=== PATIENT | female | born 1965 | race African-American/Black ===

== ENCOUNTER 2017-06-08 08:22 | Inpatient (IN) | payer OTHER ==
[2017-06-08 13:10] VITALS: BMI 32.2
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
[2017-06-08] MEDS ORDERED: diphenhydrAMINE HCL 50 MG CAPSULE PO PRN (15:18)
[2017-06-08] MEDS ORDERED: LOPERAMIDE HCL 2 MG CAPSULE PO PRN (15:18)
[2017-06-08] MEDS ORDERED: guaiFENesin/D-METHORPHAN HB 10 ML UNIT-DOSE CUPS PO PRN (15:18)
[2017-06-08] MEDS ORDERED: MENTHOL/PHENOL 1 EACH UD MM PRN (15:18)
[2017-06-08] MEDS ORDERED: MAG HYDROX/AL HYDROX/SIMETH 30 ML UNIT-DOSE CUP PO PRN (15:18)
[2017-06-08] MEDS ORDERED: MAGNESIUM CITRATE 300 ML BOTTLE PO PRN (15:18)
[2017-06-08] MEDS ORDERED: MAGNESIUM HYDROX 2400MG/30ML ORAL SUSPENSION 30 ML CUP PO PRN (15:18)
[2017-06-08] MEDS ORDERED: ACETAMINOPHEN 325 MG TABLET (FP) PO PRN (15:18)
[2017-06-08] MEDS ORDERED: P-EPHED 60MG/TRIPROLIDI 2.5MG TABLET PO PRN (15:18)
[2017-06-08] MEDS ORDERED: IBUPROFEN 400 MG TABLET (FP) PO PRN (15:18)
--- NOTE | 2017-06-08 17:49 | PN ---
BHS Progress Note Note: received nurse call that the patient needs detox regimen chart reviewed librium protocol continue detox
[2017-06-08 22:15] LABS: URINE APPEARANCE TURBID; URINE BILIRUBIN NEGATIVE (NEGATIVE); URINE BLOOD NEGATIVE (NEGATIVE); URINE COLOR YELLOW; URINE GLUCOSE (UA) NEGATIVE (NEGATIVE); URINE KETONE NEGATIVE (NEGATIVE); URINE NITRITE NEGATIVE (NEGATIVE); URINE PROTEIN NEGATIVE (NEGATIVE); URINE UROBILINOGEN NEGATIVE mg/dL (0.2-1.0)
[2017-06-08] MEDS: chlordiazePOXIDE HCL 25 MG CAPSULE PO SCH (22:17)
[2017-06-08 23:00] LABS: HIV 1 & 2 AB NEGATIVE; HIV 1 AGp24 NEGATIVE
[2017-06-09] MEDS: chlordiazePOXIDE HCL 25 MG CAPSULE PO SCH ×4 (05:24→22:31)
[2017-06-09 09:34] LABS: MCH 29.6 pg (25.7-33.7); MCHC 32.3 g/dl (32.0-36.0); MEAN CELL VOLUME 91.6 fl (80-96); MEAN PLT VOLUME 10.2 fl (7.5-11.1); PLATELET COUNT 319 K/MM3 (134-434); RDW 13.8 % (11.6-15.6); WHITE BLOOD COUNT 10.7 K/mm3 (4.0-10.0)
[2017-06-09 09:51] LABS: ALBUMIN 4.4 g/dl (3.4-5.0); ALK PHOS 127 U/L (45-117); ANION GAP 10 (8-16); BILIRUBIN,TOTAL 0.4 mg/dL (0.2-1.0); CALCIUM 8.5 mg/dL (8.5-10.1); CHOLESTEROL 228 mg/dL (50-200); CO2 27 mmol/L (21-32); CREATININE 0.5 mg/dL (0.55-1.02); GLUCOSE,RANDOM 83 mg/dL (74-106); SGOT/AST 25 U/L (15-37); SGPT/ALT 34 U/L (12-78); TOT PROT 7.5 g/dl (6.4-8.2)
[2017-06-09] MEDS: FLUOCINONIDE 0.05% CREAM (15 GM TUBE) TP SCH ×4 (10:07→22:31)
[2017-06-09] MEDS: PRENATAL VITAMINS W/ FOLIC ACID TABLET (FP) PO SCH (10:07)
[2017-06-09] MEDS: hydrOXYzine PAMOATE 25 MG CAPSULE (FP) PO PRN (10:07)
[2017-06-09] MEDS: NICOTINE 14 MG/24 HOURS TOPICAL PATCH TD SCH (10:07)
--- NOTE | 2017-06-09 10:19 | PN ---
S CIWA - CIWA Score Nausea/Vomitin Muscle Tremors: 3 Anxiety: 3 Agitation: 2 Paroxysmal Sweats: 1-Minimal Palms Moist Orientation: 0-Oriented Tacttile Disturbances: 1-Very Mild Itch/Numbness Auditory Disturbances: 1-Very Mild Visual Disturbances: 0-None Headache: 2-Mild CIWA-Ar Total Score: 16 BHS Progress Note (SOAP) Subjective: alert,irritable,anxious,interrupted sleep,tremor,pain i the body Objective: 06/09/17 10: Vital Signs Temperature 97.1 F L 06/09/17 06:00 Pulse Rate 60 06/09/17 06:00 Respiratory Rate 18 06/09/17 06:00 Blood Pressure 137/73 06/09/17 06:00 O2 Sat by Pulse Oximetry (%) ekg nsr no chest pain,no sob,no dizziness Laboratory Last Values WBC 10.7 K/mm3 (4.0-10.0) H 06/09/17 06:00 RBC 4.39 M/mm3 (3.60-5.2) 06/09/17 06:00 Hgb 13.0 GM/dL (10.7-15.3) 06/09/17 06:00 Hct 40.2 % (32.4-45.2) 06/09/17 06:00 MCV 91.6 fl (80-96) 06/09/17 06:00 MCH 29.6 pg (25.7-33.7) 06/09/17 06:00 MCHC 32.3 g/dl (32.0-36.0) 06/09/17 06:00 RDW 13.8 % (11.6-15.6) 06/09/17 06:00 Plt Count 319 K/MM3 (134-434) 06/09/17 06:00 MPV 10.2 fl (7.5-11.1) 06/09/17 06:00 Urine Color Yellow 06/08/17 21:30 Urine Appearance Turbid 06/08/17 21:30 Urine pH 5.0 (5.0-8.0) 06/08/17 21:30 Urine Protein Negative (NEGATIVE) 06/08/17 21:30 Urine Glucose (UA) Negative (NEGATIVE) 06/08/17 21:30 Urine Ketones Negative (NEGATIVE) 06/08/17 21:30 Urine Blood Negative (NEGATIVE) 06/08/17 21:30 Urine Nitrite Negative (NEGATIVE) 06/08/17 21:30 Urine Bilirubin Negative (NEGATIVE) 06/08/17 21:30 Urine Urobilinogen Negative mg/dL (0.2-1.0) 06/08/17 21:30 HIV 1&2 Antibody Screen Negative 06/08/17 14:00 HIV P24 Antigen Negative 06/08/17 14:00 labs pending Assessment: 06/09/17 10:18 withdrawal symptom Plan: continue detox,encourage oral fluid
[2017-06-09 11:12] LABS: URINE LEUK ESTERASE Negative (NEGATIVE)
--- NOTE | 2017-06-09 12:06 | EKG ---
Test Reason : Blood Pressure : / mmHG Vent. Rate : 061 BPM Atrial Rate : 061 BPM P-R Int : 140 ms QRS Dur : 092 ms QT Int : 454 ms P-R-T Axes : 054 005 018 degrees QTc Int : 457 ms NORMAL SINUS RHYTHM POSSIBLE LEFT ATRIAL ENLARGEMENT BORDERLINE ECG NO PREVIOUS ECGS AVAILABLE Confirmed by KATINA APONTE, CHARO ([id number]) on 06/09/2017 12:06:04 PM Referred By: Mp Pedersen Confirmed By:CHARO AMBRIZ MD
--- NOTE | 2017-06-09 17:06 | CONSULT ---
[facility] Psychiatric Consult - Data Date of interview: 06/09/17 Admission source: [facility] Identifying data: Readmission to [facility] for this 51 y/o AA female seeking detox treatment on for alcohol,marihuana and cocaine dependence.Patient is single,a mother of five,homeless,unemployed and supported on SSI benefits. Substance Abuse History: Confirmed by patient in this interview. Smoking Cessation. Smoking history: Current every day smoker. Have you smoked in the past 12 months: Yes. Aproximately how many cigarettes per day: 3. Cigars Per Day: 0. Hx Chewing Tobacco Use: No. Initiated information on smoking cessation : Yes. 'Breaking Loose' booklet given: 06/08/17. - Substance & Tx. History. Hx Alcohol Use: Yes. Hx Substance Use: Yes. Substance Use Type: Alcohol, Cocaine, Marijuana. Hx Substance Use Treatment: Yes ([facility] 05/2007). - Substances Abused. Alcohol. Route: Oral. Frequency: Daily. Amount used: 12pk beer. Age of first use: 14. Date of Last Use: 06/08/17. Crack. Route : Smoking. Frequency: 1-3 times last 30 days. Amount used: 1-2 bags. Age of first use: 17. Date of Last Use: 06/07/17. Marijuana/Hashish. Route: Smoking. Frequency: Daily. Amount used: 1-2 bags. Age of first use: 14. Date of Last Use: 06/08/17 Medical History: Hypercholesterolemia,eczema,sleep apnea and orthosurgery for fracture of left leg (2005) and a history of ovarian cystectomy. Psychiatric History: Past history of one psychiatric hospitalization at [facility] ([facility]) 2-3 years ago.Diagnosed with Bipolar Disorder.Presctibed topamax 50 mg/day.Ms Guajardo is followed at [facility] in [place].She admits to past suicide attempts via deliberate overdoses with " alcohol + pills." Physical/Sexual Abuse/Trauma History: No reported history of abuse. Additional Comment: Urine Drug Screen Results: THC-Marijuana, AMY-Cocaine.Noted. Mental Status Exam - Mental Status Exam Alert and Oriented to: Time, Place, Person Cognitive Function: Good Patient Appearance: Well Groomed (overweight) Mood: Hopeful, Euthymic Affect: Appropriate, Normal Range Patient Behavior: Talkative, Appropriate Speech Pattern: Clear Voice Loudness: Normal Thought Process: Intact, Goal Oriented Thought Disorder: Not Present Hallucinations: Denies Suicidal Ideation: Denies Homicidal Ideation: Denies Insight/Judgement: Poor Sleep: Poorly, Difficulty falling asleep (wants seroquel) Appetite: Good Muscle strength/Tone: Normal Gait/Station: Normal Psychiatric Findings - Problem List ([place] 1, 2,3) (1) Alcohol dependence with uncomplicated withdrawal Current Visit: Yes Status: Acute (2) Cannabis dependence Current Visit: Yes Status: Acute (3) Cocaine dependence Current Visit: Yes Status: Acute (4) Nicotine dependence Current Visit: Yes Status: Acute (5) Bipolar disorder Current Visit: Yes Status: Chronic Comment: Self-report.On topamax. (6) History of ovarian cyst Current Visit: Yes Status: Chronic (7) Hypercholesterolemia Current Visit: Yes Status: Chronic (8) Sleep apnea Current Visit: Yes Status: Chronic (9) Insomnia Current Visit: Yes Status: Acute - Initial Treatment Plan Initial Treatment Plan: Psychoeducation.Detoxification.Medications : topamax 50 mg po daily + seroquel 50 mg po hs.Side effects/benefits of both drugs are discussed with the patient.She agrees with this plan of care.Observation.
[2017-06-09] MEDS ORDERED: QUEtiapine FUMARATE 50 MG TABLET PO SCH (22:00)
[2017-06-10] MEDS: chlordiazePOXIDE HCL 25 MG CAPSULE PO SCH ×2 (05:17→10:24)
[2017-06-10] MEDS ORDERED: TOPIRAMATE 25 MG TABLET (FP) PO SCH (10:00)
[2017-06-10] MEDS: PRENATAL VITAMINS W/ FOLIC ACID TABLET (FP) PO SCH (10:24)
[2017-06-10] MEDS: NICOTINE 14 MG/24 HOURS TOPICAL PATCH TD SCH (10:25)
[2017-06-10] MEDS: FLUOCINONIDE 0.05% CREAM (15 GM TUBE) TP SCH ×2 (10:25→14:00)
--- NOTE | 2017-06-10 10:27 | PN ---
S CIWA - CIWA Score Nausea/Vomitin Muscle Tremors: 3 Anxiety: 3 Agitation: 2 Paroxysmal Sweats: 1-Minimal Palms Moist Orientation: 0-Oriented Tacttile Disturbances: 1-Very Mild Itch/Numbness Auditory Disturbances: 1-Very Mild Visual Disturbances: 0-None Headache: 2-Mild CIWA-Ar Total Score: 16 BHS Progress Note (SOAP) Subjective: alert,irritable,anxious,interrupted sleep,tremor Objective: 06/10/17 10:24 Vital Signs Temperature 97.9 F 06/10/17 09:28 Pulse Rate 74 06/10/17 09:28 Respiratory Rate 18 06/10/17 09:28 Blood Pressure 139/83 06/10/17 09:28 O2 Sat by Pulse Oximetry (%) Laboratory Last Values WBC 10.7 K/mm3 (4.0-10.0) H 06/09/17 06:00 RBC 4.39 M/mm3 (3.60-5.2) 06/09/17 06:00 Hgb 13.0 GM/dL (10.7-15.3) 06/09/17 06:00 Hct 40.2 % (32.4-45.2) 06/09/17 06:00 MCV 91.6 fl (80-96) 06/09/17 06:00 MCH 29.6 pg (25.7-33.7) 06/09/17 06:00 MCHC 32.3 g/dl (32.0-36.0) 06/09/17 06:00 RDW 13.8 % (11.6-15.6) 06/09/17 06:00 Plt Count 319 K/MM3 (134-434) 06/09/17 06:00 MPV 10.2 fl (7.5-11.1) 06/09/17 06:00 Sodium 142 mmol/L (136-145) 06/09/17 06:00 Potassium 3.9 mmol/L (3.5-5.1) 06/09/17 06:00 Chloride 105 mmol/L (98-107) 06/09/17 06:00 Carbon Dioxide 27 mmol/L (21-32) 06/09/17 06:00 Anion Gap 10 (8-16) 06/09/17 06:00 BUN 5 mg/dL (7-18) L 06/09/17 06:00 Creatinine 0.5 mg/dL (0.55-1.02) L 06/09/17 06:00 Creat Clearance w eGFR > 60 (>60) 06/09/17 06:00 Random Glucose 83 mg/dL (74-106) 06/09/17 06:00 Calcium 8.5 mg/dL (8.5-10.1) 06/09/17 06:00 Total Bilirubin 0.4 mg/dL (0.2-1.0) 06/09/17 06:00 AST 25 U/L (15-37) 06/09/17 06:00 ALT 34 U/L (12-78) 06/09/17 06:00 Alkaline Phosphatase 127 U/L (45-117) H 06/09/17 06:00 Total Protein 7.5 g/dl (6.4-8.2) 06/09/17 06:00 Albumin 4.4 g/dl (3.4-5.0) 06/09/17 06:00 Triglycerides 153 mg/dL (35-160) 06/09/17 06:00 Cholesterol 228 mg/dL (50-200) H 06/09/17 06:00 Total LDL Cholesterol 127 mg/dL (5-100) H 06/09/17 06:00 HDL Cholesterol 76 mg/dL (40-60) H 06/09/17 06:00 Urine Color Yellow 06/08/17 21:30 Urine Appearance Turbid 06/08/17 21:30 Urine pH 5.0 (5.0-8.0) 06/08/17 21:30 Ur Specific [place] 1.025 (1.005-1.025) 06/08/17 21:30 Urine Protein Negative (NEGATIVE) 06/08/17 21:30 Urine Glucose (UA) Negative (NEGATIVE) 06/08/17 21:30 Urine Ketones Negative (NEGATIVE) 06/08/17 21:30 Urine Blood Negative (NEGATIVE) 06/08/17 21: Urine Nitrite Negative (NEGATIVE) 06/08/17 21:30 Urine Bilirubin Negative (NEGATIVE) 06/08/17 21:30 Urine Urobilinogen Negative mg/dL (0.2-1.0) 06/08/17 21:30 Ur Leukocyte Esterase Negative (NEGATIVE) 06/08/17 21:30 RPR Titer Nonreactive (NONREACTIVE) 06/09/17 06:00 HIV 1&2 Antibody Screen Negative 06/08/17 14:00 HIV P24 Antigen Negative 06/08/17 14:00 Assessment: 06/10/17 10:26 withdrawal symptom Plan: continue detox,low cholesterol diet advise
[2017-06-10] MEDS: hydrOXYzine PAMOATE 25 MG CAPSULE (FP) PO PRN (10:28)
[2017-06-10 12:39] VITALS: BP 129/66; PULSE 70; TEMP 97.7
--- NOTE | 2017-06-10 15:47 | PN ---
[facility] Progress Note Note: patient did not want to complete treatment.seen by counselor,signed release ama, did not want to wait
--- NOTE | 2017-06-10 15:53 | DS ---
[facility] Detox Discharge Summary Admission Date: 06/08/17 Discharge Date: 06/10/17 - History Present History: Alcohol Dependence, Cannabis Dependence, Cocaine Dependence Additional Comments: patient did not want to complete treatment,seen by counselor,signed release ama, did not want to wait Pertinent Past History: bipolar disorder depression nicotine dependence sleep apnea nicotine dependence - Physical Exam Results Vital Signs: Vital Signs Temperature 97.7 F 06/10/17 12:38 Pulse Rate 70 06/10/17 12:38 Respiratory Rate 18 06/10/17 12:38 Blood Pressure 129/66 06/10/17 12:38 O2 Sat by Pulse Oximetry (%) Pertinent Admission Physical Exam Findings: withdrawal symptom - Medication Discharge Medications: Ambulatory Orders Hydroxyzine HCl [Atarax -] 100 mg PO HS 06/08/17 Topiramate [Topamax] 50 mg PO DAILY 06/08/17 - Diagnosis (1) Alcohol dependence with uncomplicated withdrawal Current Visit: Yes Status: Acute (2) Cocaine dependence Current Visit: Yes Status: Acute (3) Cannabis dependence Current Visit: Yes Status: Acute (4) Bipolar disorder Current Visit: Yes Status: Chronic (5) Depression Current Visit: Yes Status: Acute (6) History of ovarian cyst Current Visit: Yes Status: Chronic (7) Nicotine dependence Current Visit: Yes Status: Acute (8) Sleep apnea Current Visit: Yes Status: Chronic (9) Hypercholesterolemia Current Visit: Yes Status: Chronic (10) Elbow fracture, right Current Visit: Yes Status: Acute - AMA Did Patient Leave Against Medical Advice: Yes
[2017-06-10] MEDS ORDERED: chlordiazePOXIDE 5 MG CAPSULE PO SCH (23:00)
== END 2017-06-10 16:19 | disposition left against medical advice (07) | DRG 770 ==
LOC: YASAS 08:22 → Y6N 15:30
PROVIDERS: ADMIT Internal Medicine; ATTEND Internal Medicine
PROC: HZ2ZZZZ Detoxification Services for Substance Abuse Treatment (ICD-10-PCS; principal; 2017-06-08)
DX: F10.230 Alcohol dependence with withdrawal, uncomplicated (principal); F14.20 Cocaine dependence, uncomplicated; F12.20 Cannabis dependence, uncomplicated; F17.210 Nicotine dependence, cigarettes, uncomplicated; F31.9 Bipolar disorder, unspecified; F32.9 Major depressive disorder, single episode, unspecified; G47.30 Sleep apnea, unspecified; E78.00 Pure hypercholesterolemia, unspecified; G47.00 Insomnia, unspecified; Z91.5 Personal history of self-harm
CPT/HCPCS: 36415; 80053; 80061; 81003; 83721; 85027; 86593; 87389; 93005; 93010

== ENCOUNTER 2021-02-23 23:05 | Inpatient (IN) | payer OTHER ==
[2021-02-24] MEDS ORDERED: MAGNESIUM CITRATE 300 ML BOTTLE PO PRN
[2021-02-24] MEDS ORDERED: MENTHOL/PHENOL 1 EACH UD MM PRN
[2021-02-24] MEDS ORDERED: NICOTINE POLACRILEX 2 MG GUM BUC PRN
[2021-02-24] MEDS ORDERED: MAG HYDROX/AL HYDROX/SIMETH 30 ML UNIT-DOSE CUP PO PRN
[2021-02-24] MEDS ORDERED: MAGNESIUM HYDROX 2400MG/30ML ORAL SUSPENSION 30 ML CUP PO PRN
[2021-02-24] MEDS ORDERED: BISMUTH SUBSALICYLATE 524 MG/30 ML PO PRN
[2021-02-24] MEDS ORDERED: ACETAMINOPHEN 325 MG TABLET (FP) PO PRN ×2
[2021-02-24] MEDS ORDERED: ONDANSETRON *ODT* 4 MG TABLET SL PRN
[2021-02-24 00:39] VITALS: BMI 28.3
[2021-02-24] MEDS ORDERED: diazePAM 5 MG TABLET ONE (00:44)
[2021-02-24] MEDS: diazePAM 5 MG TABLET PO PRN (00:46)
[2021-02-24] MEDS: diazePAM 5 MG TABLET PO SCH ×4 (05:51→22:26)
[2021-02-24] MEDS ORDERED: TOPIRAMATE 25 MG TABLET PO PRN ×2 (09:18→13:33)
[2021-02-24] MEDS: METHOCARBAMOL 500 MG TABLET PO PRN (10:24)
[2021-02-24] MEDS: PRENATAL VITAMINS W/ FOLIC ACID TABLET (FP) PO SCH (10:24)
[2021-02-24] MEDS: NICOTINE 21 MG/24 HOURS TOPICAL PATCH TD SCH (10:25)
[2021-02-24] MEDS: DIVALPROEX SODIUM 500 MG TABLET E.C. PO SCH ×2 (10:25→22:26)
[2021-02-24] MEDS: IBUPROFEN 400 MG TABLET (FP) PO PRN ×2 (10:26→22:26)
[2021-02-24 11:28] LABS: HIV INTERPRETATION NEGATIVE (NEGATIVE)
[2021-02-24 13:32] LABS: HEMATOCRIT 41.5 % (32.4-45.2); HEMOGLOBIN 13.7 GM/dL (10.7-15.3); MEAN PLT VOLUME 9.2 fl (7.5-11.1); PLATELET COUNT 254 10^3/uL (134-434); RBC 4.41 M/mm3 (3.60-5.2); RDW 13.7 % (11.6-15.6); WHITE BLOOD COUNT 7.5 K/mm3 (4.0-10.0)
[2021-02-24 13:51] LABS: CALCIUM 8.8 mg/dL (8.5-10.1)
[2021-02-24 13:52] LABS: ALBUMIN 3.4 g/dl (3.4-5.0)
[2021-02-24 13:54] LABS: CREATININE 0.7 mg/dL (0.55-1.3)
[2021-02-24 13:56] LABS: BILIRUBIN,TOTAL 0.6 mg/dL (0.2-1); BLOOD UREA NITROGEN 13.3 mg/dL (7-18); TOT PROT 6.8 g/dl (6.4-8.2)
[2021-02-24] MEDS: PATIENT'S OWN MEDICATION (NON-FORMULARY) (Betamethasone/Propylene Glyc [Betamethasone Dp A TP SCH (14:20)
[2021-02-24] MEDS: ALBUTEROL SO4 HFA INHALER IH PRN (17:43)
[2021-02-24] MEDS: traZODone HCL 100 MG TABLET (FP) PO SCH (22:25)
[2021-02-24] MEDS: THIAMINE HCL 100 MG TABLET (FP) PO SCH (22:25)
[2021-02-24] MEDS: MELATONIN 5 MG TABLETS PO SCH (22:30)
[2021-02-25] MEDS: diazePAM 5 MG TABLET PO SCH ×3 (06:07→23:15)
[2021-02-25] MEDS: PRENATAL VITAMINS W/ FOLIC ACID TABLET (FP) PO SCH (10:20)
[2021-02-25] MEDS: NICOTINE 21 MG/24 HOURS TOPICAL PATCH TD SCH (10:20)
[2021-02-25] MEDS: METHOCARBAMOL 500 MG TABLET PO PRN (10:21)
[2021-02-25] MEDS: DIVALPROEX SODIUM 500 MG TABLET E.C. PO SCH ×2 (10:21→23:13)
[2021-02-25] MEDS: PATIENT'S OWN MEDICATION (NON-FORMULARY) (Betamethasone/Propylene Glyc [Betamethasone Dp A TP SCH (12:43)
[2021-02-25] MEDS: IBUPROFEN 400 MG TABLET (FP) PO PRN (13:58)
[2021-02-25] MEDS: ALBUTEROL SO4 HFA INHALER IH PRN (18:49)
[2021-02-25] MEDS: traZODone HCL 100 MG TABLET (FP) PO SCH (23:13)
[2021-02-25] MEDS: MELATONIN 5 MG TABLETS PO SCH (23:15)
[2021-02-25] MEDS: THIAMINE HCL 100 MG TABLET (FP) PO SCH (23:15)
[2021-02-26] MEDS: IBUPROFEN 400 MG TABLET (FP) PO PRN (05:34)
[2021-02-26] MEDS: diazePAM 5 MG TABLET PO SCH ×2 (05:35→17:54)
[2021-02-26] MEDS ORDERED: cloNIDine HCL 0.1 MG TABLET PO PRN (10:43)
[2021-02-26] MEDS: amLODIPine BESYLATE 5 MG TABLET (FP) PO SCH (11:52)
[2021-02-26] MEDS: METHOCARBAMOL 500 MG TABLET PO PRN (11:53)
[2021-02-26] MEDS: DIVALPROEX SODIUM 500 MG TABLET E.C. PO SCH ×2 (11:53→22:12)
[2021-02-26] MEDS: PRENATAL VITAMINS W/ FOLIC ACID TABLET (FP) PO SCH (11:53)
[2021-02-26] MEDS: PATIENT'S OWN MEDICATION (NON-FORMULARY) (Betamethasone/Propylene Glyc [Betamethasone Dp A TP SCH (11:53)
[2021-02-26] MEDS: NICOTINE 21 MG/24 HOURS TOPICAL PATCH TD SCH (11:56)
[2021-02-26] MEDS: diazePAM 5 MG TABLET PO PRN ×2 (13:11→22:15)
[2021-02-26] MEDS: traZODone HCL 100 MG TABLET (FP) PO SCH (22:11)
[2021-02-26] MEDS: THIAMINE HCL 100 MG TABLET (FP) PO SCH (22:11)
[2021-02-26] MEDS: MELATONIN 5 MG TABLETS PO SCH (22:28)
[2021-02-27] MEDS ORDERED: diazePAM 5 MG TABLET PO ONE (06:00)
[2021-02-27] MEDS: IBUPROFEN 400 MG TABLET (FP) PO PRN (06:28)
[2021-02-27 09:30] VITALS: BP 108/74; PULSE 61; TEMP 97.3
[2021-02-27] MEDS: DIVALPROEX SODIUM 500 MG TABLET E.C. PO SCH (10:02)
[2021-02-27] MEDS: NICOTINE 21 MG/24 HOURS TOPICAL PATCH TD SCH (10:02)
[2021-02-27] MEDS: amLODIPine BESYLATE 5 MG TABLET (FP) PO SCH (10:02)
[2021-02-27] MEDS: PRENATAL VITAMINS W/ FOLIC ACID TABLET (FP) PO SCH (10:03)
[2021-02-27] MEDS: METHOCARBAMOL 500 MG TABLET PO PRN (10:04)
[2021-02-27] MEDS: PATIENT'S OWN MEDICATION (NON-FORMULARY) (Betamethasone/Propylene Glyc [Betamethasone Dp A TP SCH (10:06)
[2021-02-27 10:07] LABS: SARS-CoV-2 NAA Not Detected (Not Detected)
[2021-02-27] MEDS ORDERED: TRIAMCINOLONE ACET 0.025% OINTMENT 15 GM TUBE TP SCH (10:45)
== END 2021-02-27 12:19 | disposition other institution (70) | DRG 774 ==
LOC: YASAS 23:05 → Y6N 02-24 00:58
PROVIDERS: ADMIT Allergy & Immunology; ATTEND Allergy & Immunology
PROC: HZ2ZZZZ Detoxification Services for Substance Abuse Treatment (ICD-10-PCS; principal; 2021-02-24)
DX: F10.230 Alcohol dependence with withdrawal, uncomplicated (principal); F14.20 Cocaine dependence, uncomplicated; F12.20 Cannabis dependence, uncomplicated; F17.210 Nicotine dependence, cigarettes, uncomplicated; F31.9 Bipolar disorder, unspecified; F19.24 Other psychoactive substance dependence with psychoactive substance-induced mood disorder; F19.280 Other psychoactive substance dependence with psychoactive substance-induced anxiety disorder; F19.282 Other psychoactive substance dependence with psychoactive substance-induced sleep disorder; F43.10 Post-traumatic stress disorder, unspecified; J45.909 Unspecified asthma, uncomplicated; L30.9 Dermatitis, unspecified; G47.00 Insomnia, unspecified; R00.1 Bradycardia, unspecified; J42 Unspecified chronic bronchitis; E78.00 Pure hypercholesterolemia, unspecified; S02.2XXA Fracture of nasal bones, initial encounter for closed fracture; S00.11XA Contusion of right eyelid and periocular area, initial encounter; Z62.810 Personal history of physical and sexual abuse in childhood; Z56.0 Unemployment, unspecified; Y04.8XXA Assault by other bodily force, initial encounter; Y93.9 Activity, unspecified; Y92.9 Unspecified place or not applicable
CPT/HCPCS: 36415; 70450-TC; 70486-TC; 80053; 80164; 81025; 85027; 86780; 87389; 90715; 93005; 93010; C9803; U0003; U0005

== ENCOUNTER 2021-02-27 13:35 | Inpatient (IN) | payer OTHER ==
[2021-02-27] MEDS ORDERED: MAGNESIUM HYDROX 2400MG/30ML ORAL SUSPENSION 30 ML CUP PO PRN (14:19)
[2021-02-27] MEDS ORDERED: guaiFENesin 200 MG/10 ML 10 ML UNIT-DOSE CUPS PO PRN (14:19)
[2021-02-27] MEDS ORDERED: MENTHOL/PHENOL 1 EACH UD MM PRN (14:19)
[2021-02-27] MEDS ORDERED: ACETAMINOPHEN 325 MG TABLET (FP) PO PRN (14:19)
[2021-02-27] MEDS ORDERED: MAG HYDROX/AL HYDROX/SIMETH 30 ML UNIT-DOSE CUP PO PRN (14:19)
[2021-02-27] MEDS ORDERED: P-EPHED 60MG/TRIPROLIDI 2.5MG TABLET PO PRN (14:19)
[2021-02-27] MEDS ORDERED: MAGNESIUM CITRATE 300 ML BOTTLE PO PRN (14:19)
[2021-02-27] MEDS ORDERED: NICOTINE POLACRILEX 2 MG GUM BUC PRN (14:19)
[2021-02-27] MEDS ORDERED: IBUPROFEN 400 MG TABLET (FP) PO PRN (14:19)
[2021-02-27] MEDS ORDERED: LOPERAMIDE HCL 2 MG CAPSULE PO PRN (14:19)
[2021-02-27] MEDS ORDERED: COLLOIDAL OATMEAL 1 BAR EACH TP PRN (14:27)
[2021-02-27] MEDS: hydrOXYzine PAMOATE 25 MG CAPSULE (FP) PO SCH ×2 (18:58→21:16)
[2021-02-27] MEDS: TRIAMCINOLONE ACET 0.1% OINT 15 GM TUBE TP SCH (21:15)
[2021-02-27] MEDS: THIAMINE HCL 100 MG TABLET (FP) PO SCH (21:16)
[2021-02-27] MEDS ORDERED: DIVALPROEX SODIUM 500 MG TABLET E.C. PO ONE (21:51)
[2021-02-27] MEDS ORDERED: MELATONIN 5 MG TABLETS PO SCH (22:00)
[2021-02-28] MEDS: hydrOXYzine PAMOATE 25 MG CAPSULE (FP) PO SCH ×5 (08:10→23:05)
[2021-02-28] MEDS ORDERED: NICOTINE 7 MG/24 HOURS TOPICAL PATCH TD SCH (10:00)
[2021-02-28] MEDS: PRENATAL VITAMINS W/ FOLIC ACID TABLET (FP) PO SCH (10:34)
[2021-02-28] MEDS: amLODIPine BESYLATE 5 MG TABLET (FP) PO SCH (10:34)
[2021-02-28] MEDS: MINERAL OIL/PETROLAT/WATER TOPICAL CREAM 113 GM JAR TP SCH (10:35)
[2021-02-28] MEDS: NICOTINE 21 MG/24 HOURS TOPICAL PATCH TD SCH (10:35)
[2021-02-28] MEDS: TRIAMCINOLONE ACET 0.1% OINT 15 GM TUBE TP SCH ×2 (10:37→23:05)
[2021-02-28] MEDS: ALBUTEROL SO4 HFA INHALER IH PRN (10:40)
[2021-02-28 11:08] LABS: HIV INTERPRETATION NEGATIVE (NEGATIVE)
[2021-02-28] MEDS ORDERED: PNEUMOCOCCAL 23 VACCINE 0.5 ML VIAL IM ONE (12:00)
[2021-02-28] MEDS ORDERED: PNEUMOC 13-VAL CONJ-DIP CRM/PF 0.5 ML DISP.SYRIN IM ONE (12:00)
[2021-02-28] MEDS: traZODone HCL 50 MG TABLET (FP) PO SCH ×2 (12:29→23:40)
[2021-02-28] MEDS: THIAMINE HCL 100 MG TABLET (FP) PO SCH (23:05)
[2021-02-28] MEDS: BENZTROPINE MESYLATE 0.5 MG TABLET (FP) PO SCH (23:39)
[2021-02-28] MEDS: DIVALPROEX NA *ER* EXTEND REL 500 MG TABLET.SA (FP) PO SCH (23:40)
[2021-03-01] MEDS: hydrOXYzine PAMOATE 25 MG CAPSULE (FP) PO SCH ×2 (06:11→10:53)
[2021-03-01] MEDS: PRENATAL VITAMINS W/ FOLIC ACID TABLET (FP) PO SCH (10:46)
[2021-03-01] MEDS: ALBUTEROL SO4 HFA INHALER IH PRN (10:47)
[2021-03-01] MEDS: NICOTINE 21 MG/24 HOURS TOPICAL PATCH TD SCH (10:47)
[2021-03-01] MEDS: amLODIPine BESYLATE 5 MG TABLET (FP) PO SCH (10:47)
[2021-03-01] MEDS: traZODone HCL 50 MG TABLET (FP) PO SCH ×2 (10:47→23:00)
[2021-03-01] MEDS: MINERAL OIL/PETROLAT/WATER TOPICAL CREAM 113 GM JAR TP SCH (10:48)
[2021-03-01] MEDS: TRIAMCINOLONE ACET 0.1% OINT 15 GM TUBE TP SCH ×2 (10:49→23:01)
[2021-03-01] MEDS: BENZTROPINE MESYLATE 0.5 MG TABLET (FP) PO SCH ×2 (10:50→23:05)
[2021-03-01] MEDS: hydrOXYzine PAMOATE 50 MG CAPSULE (FP) PO SCH ×3 (14:02→22:03)
[2021-03-01] MEDS: DIVALPROEX NA *ER* EXTEND REL 500 MG TABLET.SA (FP) PO SCH ×2 (15:21→22:03)
[2021-03-01] MEDS: THIAMINE HCL 100 MG TABLET (FP) PO SCH (22:03)
[2021-03-01] MEDS: BENZTROPINE MESYLATE 1 MG TABLET PO SCH ×2 (23:00→23:01)
[2021-03-02] MEDS: hydrOXYzine PAMOATE 50 MG CAPSULE (FP) PO SCH ×5 (06:32→22:14)
[2021-03-02] MEDS: PRENATAL VITAMINS W/ FOLIC ACID TABLET (FP) PO SCH (10:45)
[2021-03-02] MEDS: NICOTINE 21 MG/24 HOURS TOPICAL PATCH TD SCH (10:45)
[2021-03-02] MEDS: amLODIPine BESYLATE 5 MG TABLET (FP) PO SCH (10:45)
[2021-03-02] MEDS: BENZTROPINE MESYLATE 1 MG TABLET PO SCH ×2 (10:46→22:12)
[2021-03-02] MEDS: TRIAMCINOLONE ACET 0.1% OINT 15 GM TUBE TP SCH ×2 (10:47→22:14)
[2021-03-02] MEDS: MINERAL OIL/PETROLAT/WATER TOPICAL CREAM 113 GM JAR TP SCH (10:49)
[2021-03-02] MEDS ORDERED: COVID-19 VAC,AD26(JANSSEN)/PF 0.5 ML IM ONE (11:00)
[2021-03-02] MEDS: DIVALPROEX NA *ER* EXTEND REL 500 MG TABLET.SA (FP) PO SCH ×2 (13:06→22:14)
[2021-03-02] MEDS: traZODone HCL 50 MG TABLET (FP) PO SCH ×2 (13:08→22:13)
[2021-03-02] MEDS ORDERED: PT OWN MED DRAWER 7, Y5N ONE ×2 (19:36→22:15)
[2021-03-02] MEDS: THIAMINE HCL 100 MG TABLET (FP) PO SCH (22:12)
[2021-03-02] MEDS: ALBUTEROL SO4 HFA INHALER IH PRN (22:37)
[2021-03-03] MEDS: hydrOXYzine PAMOATE 50 MG CAPSULE (FP) PO SCH ×5 (06:41→22:16)
[2021-03-03] MEDS: BENZTROPINE MESYLATE 1 MG TABLET PO SCH ×2 (10:23→21:21)
[2021-03-03] MEDS: PRENATAL VITAMINS W/ FOLIC ACID TABLET (FP) PO SCH (10:23)
[2021-03-03] MEDS: DIVALPROEX NA *ER* EXTEND REL 500 MG TABLET.SA (FP) PO SCH ×2 (10:24→21:24)
[2021-03-03] MEDS: amLODIPine BESYLATE 5 MG TABLET (FP) PO SCH (10:24)
[2021-03-03] MEDS: traZODone HCL 50 MG TABLET (FP) PO SCH ×2 (10:24→21:21)
[2021-03-03] MEDS: NICOTINE 21 MG/24 HOURS TOPICAL PATCH TD SCH (10:25)
[2021-03-03] MEDS: MINERAL OIL/PETROLAT/WATER TOPICAL CREAM 113 GM JAR TP SCH (10:26)
[2021-03-03] MEDS: TRIAMCINOLONE ACET 0.1% OINT 15 GM TUBE TP SCH ×2 (10:28→21:21)
[2021-03-03] MEDS: THIAMINE HCL 100 MG TABLET (FP) PO SCH (21:21)
[2021-03-03] MEDS ORDERED: PT OWN MED DRAWER 7, Y5N ONE (21:23)
[2021-03-04] MEDS: hydrOXYzine PAMOATE 50 MG CAPSULE (FP) PO SCH ×5 (06:28→21:20)
[2021-03-04] MEDS: PRENATAL VITAMINS W/ FOLIC ACID TABLET (FP) PO SCH (11:00)
[2021-03-04] MEDS: BENZTROPINE MESYLATE 1 MG TABLET PO SCH (11:00)
[2021-03-04] MEDS: amLODIPine BESYLATE 5 MG TABLET (FP) PO SCH (11:01)
[2021-03-04] MEDS: traZODone HCL 50 MG TABLET (FP) PO SCH ×2 (11:01→21:20)
[2021-03-04] MEDS: MINERAL OIL/PETROLAT/WATER TOPICAL CREAM 113 GM JAR TP SCH (11:02)
[2021-03-04] MEDS: NICOTINE 21 MG/24 HOURS TOPICAL PATCH TD SCH (11:02)
[2021-03-04] MEDS: DIVALPROEX NA *ER* EXTEND REL 500 MG TABLET.SA (FP) PO SCH (11:03)
[2021-03-04] MEDS: TRIAMCINOLONE ACET 0.1% OINT 15 GM TUBE TP SCH ×2 (11:04→21:17)
[2021-03-04] MEDS ORDERED: PT OWN MED DRAWER 7, Y5N ONE ×2 (19:08→21:20)
[2021-03-04] MEDS: THIAMINE HCL 100 MG TABLET (FP) PO SCH (21:21)
[2021-03-04] MEDS ORDERED: DIVALPROEX NA *ER* EXTEND REL 500 MG TABLET.SA (FP) PO SCH (22:00)
[2021-03-05] MEDS: hydrOXYzine PAMOATE 50 MG CAPSULE (FP) PO SCH ×2 (06:32→09:11)
[2021-03-05 07:34] VITALS: TEMP 97.3
[2021-03-05] MEDS: MINERAL OIL/PETROLAT/WATER TOPICAL CREAM 113 GM JAR TP SCH (09:09)
[2021-03-05] MEDS: amLODIPine BESYLATE 5 MG TABLET (FP) PO SCH (09:09)
[2021-03-05] MEDS: traZODone HCL 50 MG TABLET (FP) PO SCH (09:10)
[2021-03-05] MEDS: NICOTINE 21 MG/24 HOURS TOPICAL PATCH TD SCH (09:10)
[2021-03-05] MEDS: TRIAMCINOLONE ACET 0.1% OINT 15 GM TUBE TP SCH (09:10)
[2021-03-05] MEDS: PRENATAL VITAMINS W/ FOLIC ACID TABLET (FP) PO SCH (09:11)
[2021-03-05 09:51] VITALS: BP 113/67; PULSE 63
[2021-03-05] MEDS ORDERED: DIVALPROEX NA *ER* EXTEND REL 500 MG TABLET.SA (FP) PO SCH (10:00)
== END 2021-03-05 11:05 | disposition home or self-care (01) | DRG 772 ==
LOC: YASAS 13:35 → Y5N 13:37
PROVIDERS: ADMIT Allergy & Immunology; ATTEND Allergy & Immunology
PROC: HZ42ZZZ Group Counseling for Substance Abuse Treatment, Cognitive-Behavioral (ICD-10-PCS; principal; 2021-02-27)
DX: F10.20 Alcohol dependence, uncomplicated (principal); F14.20 Cocaine dependence, uncomplicated; F12.20 Cannabis dependence, uncomplicated; F17.210 Nicotine dependence, cigarettes, uncomplicated; F19.24 Other psychoactive substance dependence with psychoactive substance-induced mood disorder; F19.282 Other psychoactive substance dependence with psychoactive substance-induced sleep disorder; F19.280 Other psychoactive substance dependence with psychoactive substance-induced anxiety disorder; F31.9 Bipolar disorder, unspecified; F43.10 Post-traumatic stress disorder, unspecified; J45.909 Unspecified asthma, uncomplicated; L30.9 Dermatitis, unspecified; G47.00 Insomnia, unspecified; Z62.810 Personal history of physical and sexual abuse in childhood; Z56.0 Unemployment, unspecified
CPT/HCPCS: 0031A; 36415; 80164; 87389; 90732; 91303; G0009

== ENCOUNTER 2023-04-05 12:52 | Inpatient (IN) | payer OTHER ==
[2023-04-05 14:01] VITALS: BMI 26.2
[2023-04-05] MEDS ORDERED: NALOXONE HCL (KLOXXADO) 8 MG SPRAY NS PRN (16:02)
[2023-04-05] MEDS ORDERED: guaiFENesin 600 MG TABLET.ER (FP) PO PRN (16:02)
[2023-04-05] MEDS ORDERED: ONDANSETRON *ODT* 4 MG TABLET SL PRN (16:02)
[2023-04-05] MEDS ORDERED: BENZOCAINE/MENTHOL (CHLORASEPTIC ) LOZENGE MM PRN (16:02)
[2023-04-05] MEDS ORDERED: ACETAMINOPHEN 325 MG TABLET (FP) PO PRN (16:02)
[2023-04-05] MEDS ORDERED: LOPERAMIDE HCL 2 MG CAPSULE PO PRN (16:02)
[2023-04-05] MEDS ORDERED: IBUPROFEN 400 MG TABLET (FP) PO PRN (16:02)
[2023-04-05] MEDS ORDERED: DICYCLOMINE HCL 10 MG CAPSULE PO PRN (16:02)
[2023-04-05] MEDS ORDERED: BENZONATATE 200 MG CAPSULE PO PRN (16:02)
[2023-04-05] MEDS ORDERED: MAG HYDROX/AL HYDROX/SIMETH 30 ML UNIT-DOSE CUP PO PRN (16:02)
[2023-04-05] MEDS ORDERED: IBUPROFEN 600 MG TABLET (FP) PO PRN (16:02)
[2023-04-05] MEDS ORDERED: MAGNESIUM HYDROX 2400MG/30ML ORAL SUSPENSION 30 ML CUP PO PRN (16:02)
[2023-04-05] MEDS ORDERED: NALOXONE HCL 0.4 MG/ML VIAL IM PRN (16:02)
[2023-04-05] MEDS ORDERED: POLYETHYLENE GLYCOL (HEALTHYLAX) 3350 17 GM PACKET PO PRN (16:02)
[2023-04-05] MEDS ORDERED: BISMUTH SUBSALICYLATE 524 MG/30 ML PO PRN (16:02)
[2023-04-05] MEDS ORDERED: ALBUTEROL SO4 HFA INHALER IH PRN (16:55)
[2023-04-05] MEDS: chlordiazePOXIDE HCL 25 MG CAPSULE PO SCH ×2 (17:32→22:37)
[2023-04-05] MEDS: hydrOXYzine PAMOATE 25 MG CAPSULE (FP) PO PRN (17:33)
[2023-04-05] MEDS: NICOTINE 14 MG/24 HOURS TOPICAL PATCH TD SCH (17:35)
[2023-04-05] MEDS: PRENATAL VITAMINS W/ FOLIC ACID TABLET (FP) PO SCH (17:36)
[2023-04-05] MEDS ORDERED: chlordiazePOXIDE HCL 10 MG CAPSULE PO SCH (18:00)
[2023-04-05] MEDS ORDERED: MELATONIN 5 MG TABLETS PO SCH (22:00)
[2023-04-05] MEDS: THIAMINE HCL 100 MG TABLET (FP) PO SCH (22:37)
[2023-04-05] MEDS: TRIAMCINOLONE ACET 0.1% OINT 15 GM TUBE TP SCH (23:21)
[2023-04-06] MEDS: chlordiazePOXIDE HCL 25 MG CAPSULE PO SCH ×4 (05:22→22:38)
[2023-04-06] MEDS: hydrOXYzine PAMOATE 25 MG CAPSULE (FP) PO PRN (05:24)
[2023-04-06] MEDS ORDERED: COLLOIDAL OATMEAL 1 BAR EACH TP PRN ×2 (05:36→07:11)
[2023-04-06] MEDS: TRIAMCINOLONE ACET 0.1% OINT 15 GM TUBE TP SCH ×2 (10:15→22:37)
[2023-04-06] MEDS: PRENATAL VITAMINS W/ FOLIC ACID TABLET (FP) PO SCH (10:16)
[2023-04-06] MEDS: amLODIPine BESYLATE 5 MG TABLET (FP) PO SCH (10:16)
[2023-04-06] MEDS: NICOTINE 14 MG/24 HOURS TOPICAL PATCH TD SCH (10:16)
[2023-04-06] MEDS: METHOCARBAMOL 500 MG TABLET PO PRN (10:17)
[2023-04-06] MEDS: DIVALPROEX SODIUM 250 MG TABLET E.C. PO SCH ×2 (10:54→22:37)
[2023-04-06 11:17] LABS: HEMATOCRIT 37.5 % (32.4-45.2); HEMOGLOBIN 12.3 GM/dL (10.7-15.3); MCHC 32.8 g/dl (32.0-36.0); MEAN CELL VOLUME 97.8 fl (80-96); MEAN PLT VOLUME 9.7 fl (7.5-11.1); PLATELET COUNT 238 10^3/uL (134-434); RBC 3.84 M/mm3 (3.60-5.2); RDW 13.4 % (11.6-15.6); WHITE BLOOD COUNT 5.6 K/mm3 (4.0-10.0)
[2023-04-06 13:07] LABS: POTASSIUM 3.7 mmol/L (3.5-5.1)
[2023-04-06 13:16] LABS: ALBUMIN 3.1 g/dl (3.4-5.0); CALCIUM 9.1 mg/dL (8.5-10.1)
[2023-04-06 13:17] LABS: BLOOD UREA NITROGEN 7.6 mg/dL (7-18)
[2023-04-06 13:18] LABS: CREATININE 0.5 mg/dL (0.55-1.3)
[2023-04-06 13:22] LABS: BILIRUBIN,TOTAL 0.2 mg/dL (0.2-1); TOT PROT 6.4 g/dl (6.4-8.2)
[2023-04-06] MEDS: THIAMINE HCL 100 MG TABLET (FP) PO SCH (22:37)
[2023-04-06] MEDS: QUEtiapine FUMARATE 50 MG TABLET PO SCH (22:37)
[2023-04-07] MEDS: chlordiazePOXIDE HCL 25 MG CAPSULE PO SCH ×4 (05:31→22:47)
[2023-04-07] MEDS: hydrOXYzine PAMOATE 25 MG CAPSULE (FP) PO PRN ×2 (09:25→22:46)
[2023-04-07] MEDS: amLODIPine BESYLATE 5 MG TABLET (FP) PO SCH (10:36)
[2023-04-07] MEDS: PRENATAL VITAMINS W/ FOLIC ACID TABLET (FP) PO SCH (10:36)
[2023-04-07] MEDS: NICOTINE 14 MG/24 HOURS TOPICAL PATCH TD SCH (10:36)
[2023-04-07] MEDS: DIVALPROEX SODIUM 250 MG TABLET E.C. PO SCH ×2 (10:37→22:46)
[2023-04-07] MEDS: TRIAMCINOLONE ACET 0.1% OINT 15 GM TUBE TP SCH (10:38)
[2023-04-07] MEDS: chlordiazePOXIDE HCL 25 MG CAPSULE PO PRN ×2 (13:23→20:00)
[2023-04-07] MEDS: THIAMINE HCL 100 MG TABLET (FP) PO SCH (22:46)
[2023-04-07] MEDS: QUEtiapine FUMARATE 50 MG TABLET PO SCH (22:46)
[2023-04-07] MEDS: METHOCARBAMOL 500 MG TABLET PO PRN (22:46)
[2023-04-08] MEDS ORDERED: chlordiazePOXIDE HCL 10 MG CAPSULE PO PRN
[2023-04-08] MEDS: TRIAMCINOLONE ACET 0.1% OINT 15 GM TUBE TP SCH ×2 (00:11→09:22)
[2023-04-08] MEDS: chlordiazePOXIDE HCL 10 MG CAPSULE PO SCH ×2 (05:55→10:06)
[2023-04-08 09:08] VITALS: BP 150/79; PULSE 68; RESP 16; TEMP 97.5
[2023-04-08] MEDS: DIVALPROEX SODIUM 250 MG TABLET E.C. PO SCH (09:20)
[2023-04-08] MEDS: amLODIPine BESYLATE 5 MG TABLET (FP) PO SCH (09:20)
[2023-04-08] MEDS: PRENATAL VITAMINS W/ FOLIC ACID TABLET (FP) PO SCH (09:21)
[2023-04-08] MEDS: NICOTINE 14 MG/24 HOURS TOPICAL PATCH TD SCH (09:22)
[2023-04-09] MEDS ORDERED: chlordiazePOXIDE HCL 10 MG CAPSULE PO SCH (05:00)
[2023-04-10] MEDS ORDERED: chlordiazePOXIDE HCL 10 MG CAPSULE PO ONE (05:00)
== END 2023-04-08 09:46 | disposition left against medical advice (07) | DRG 770 ==
LOC: YASAS 12:52 → Y3N 16:51
PROVIDERS: ADMIT Allergy & Immunology; ATTEND Allergy & Immunology
PROC: HZ2ZZZZ Detoxification Services for Substance Abuse Treatment (ICD-10-PCS; principal; 2023-04-05)
DX: F10.230 Alcohol dependence with withdrawal, uncomplicated (principal); F14.20 Cocaine dependence, uncomplicated; F12.20 Cannabis dependence, uncomplicated; F17.210 Nicotine dependence, cigarettes, uncomplicated; F19.282 Other psychoactive substance dependence with psychoactive substance-induced sleep disorder; F19.280 Other psychoactive substance dependence with psychoactive substance-induced anxiety disorder; F19.24 Other psychoactive substance dependence with psychoactive substance-induced mood disorder; F31.9 Bipolar disorder, unspecified; F43.10 Post-traumatic stress disorder, unspecified; J45.909 Unspecified asthma, uncomplicated; L30.9 Dermatitis, unspecified; Z62.810 Personal history of physical and sexual abuse in childhood; Z91.410 Personal history of adult physical and sexual abuse
CPT/HCPCS: 36415; 80053; 81025; 85027; 86780; 87635

== ENCOUNTER 2024-07-24 18:33 | Inpatient (IN) | payer OTHER ==
[2024-07-24 19:14] VITALS: BMI 25.7
[2024-07-24] MEDS ORDERED: BISMUTH SUBSALICYLATE 524 MG/30 ML PO PRN (20:33)
[2024-07-24] MEDS ORDERED: POLYETHYLENE GLYCOL (HEALTHYLAX) 3350 17 GM PACKET PO PRN (20:33)
[2024-07-24] MEDS ORDERED: IBUPROFEN 600 MG TABLET (FP) PO PRN (20:33)
[2024-07-24] MEDS ORDERED: BENZOCAINE/MENTHOL (CHLORASEPTIC ) LOZENGE MM PRN (20:33)
[2024-07-24] MEDS ORDERED: guaiFENesin 600 MG TABLET.ER (FP) PO PRN (20:33)
[2024-07-24] MEDS ORDERED: NALOXONE (NARCAN) HCL 4 MG/0.1 ML SPRAY NS PRN (20:33)
[2024-07-24] MEDS ORDERED: ONDANSETRON *ODT* 4 MG TABLET SL PRN (20:33)
[2024-07-24] MEDS ORDERED: IBUPROFEN 400 MG TABLET (FP) PO PRN (20:33)
[2024-07-24] MEDS ORDERED: DICYCLOMINE HCL 10 MG CAPSULE PO PRN (20:33)
[2024-07-24] MEDS ORDERED: NICOTINE POLACRILEX 2 MG GUM BUC PRN (20:33)
[2024-07-24] MEDS ORDERED: MAGNESIUM HYDROX 2400MG/30ML ORAL SUSPENSION 30 ML CUP PO PRN (20:33)
[2024-07-24] MEDS ORDERED: BENZONATATE 200 MG CAPSULE PO PRN (20:33)
[2024-07-24] MEDS ORDERED: MAG HYDROX/AL HYDROX/SIMETH 30 ML UNIT-DOSE CUP PO PRN (20:33)
[2024-07-24] MEDS ORDERED: LOPERAMIDE HCL 2 MG CAPSULE PO PRN (20:33)
[2024-07-24] MEDS ORDERED: MELATONIN 5 MG TABLETS ONE (23:10)
[2024-07-24] MEDS: MELATONIN 5 MG TABLETS PO SCH (23:19)
[2024-07-24] MEDS: THIAMINE 100 MG TABLET PO SCH (23:20)
[2024-07-24] MEDS: hydrOXYzine PAMOATE 25 MG CAPSULE (FP) PO PRN (23:29)
[2024-07-24] MEDS: METHOCARBAMOL 500 MG TABLET PO PRN (23:29)
[2024-07-25] MEDS ORDERED: chlordiazePOXIDE HCL 25 MG CAPSULE PO PRN (09:19)
[2024-07-25] MEDS: FLU VACCINE (FLULAVAL) PF 45 MCG/0.5 ML SYRINGE 2024-2025 IM ONE (09:53)
[2024-07-25] MEDS: PRENATAL VITAMINS W/ FOLIC ACID TABLET (FP) PO SCH (09:53)
[2024-07-25] MEDS: NICOTINE 21 MG/24 HOURS TOPICAL PATCH TD SCH (09:54)
[2024-07-25 10:28] LABS: HEMATOCRIT 35.8 % (32.4-45.2); HEMOGLOBIN 11.9 GM/dL (10.7-15.3); MCH 32.1 pg (25.7-33.7); MCHC 33.3 g/dl (32.0-36.0); MEAN CELL VOLUME 96.4 fl (80-96); MEAN PLT VOLUME 9.2 fl (7.5-11.1); PLATELET COUNT 314 10^3/uL (134-434); RBC 3.71 M/mm3 (3.60-5.2); RDW 14.3 % (11.6-15.6); WHITE BLOOD COUNT 6.8 K/mm3 (4.0-10.0)
[2024-07-25 10:49] LABS: CHLORIDE 112 mmol/L (98-107); POTASSIUM 4.7 mmol/L (3.5-5.1); SODIUM 144 mmol/L (136-145)
[2024-07-25 10:51] LABS: BLOOD UREA NITROGEN 11.7 mg/dL (7-18); CALCIUM 9.1 mg/dL (8.5-10.1)
[2024-07-25 10:52] LABS: ALBUMIN 3.1 g/dl (3.4-5.0); ANION GAP 7 mmol/L (4-13); CO2 25 mmol/L (21-32); GLUCOSE,RANDOM 89 mg/dL (74-106)
[2024-07-25] MEDS: chlordiazePOXIDE HCL 25 MG CAPSULE PO SCH (10:53)
[2024-07-25 10:55] LABS: CREATININE 0.6 mg/dL (0.55-1.3); SGOT/AST 13 U/L (15-37)
[2024-07-25 10:56] LABS: BILIRUBIN,TOTAL 0.3 mg/dL (0.2-1); TOT PROT 6.6 g/dl (6.4-8.2)
[2024-07-25 10:58] LABS: ALK PHOS 80 U/L (45-117); SGPT/ALT 18 U/L (13-61)
[2024-07-25 15:12] LABS: HIV INTERPRETATION NEGATIVE (NEGATIVE)
[2024-07-25] MEDS ORDERED: ALBUTEROL SO4 HFA INHALER IH PRN (19:14)
[2024-07-25] MEDS: DIVALPROEX SODIUM 250 MG TABLET E.C. PO SCH (22:14)
[2024-07-25] MEDS: QUEtiapine FUMARATE 50 MG TABLET PO SCH (22:14)
[2024-07-26] MEDS: amLODIPine BESYLATE 5 MG TABLET (FP) PO SCH (10:19)
[2024-07-26] MEDS: ACETAMINOPHEN 325 MG TABLET (FP) PO PRN (10:21)
[2024-07-26] MEDS: TRIAMCINOLONE ACET 0.1% OINT 15 GM TUBE TP SCH (13:08)
[2024-07-27] MEDS: chlordiazePOXIDE HCL 25 MG CAPSULE PO SCH (05:21)
[2024-07-27 10:17] VITALS: BP 118/68; PULSE 92; RESP 18; TEMP 98.2
[2024-07-27] MEDS: NALOXONE (NYS OPIOID OVERDOSE PROGRAM) 4 MG/0.1 ML SPRAY NS SCH (11:13)
[2024-07-28] MEDS ORDERED: chlordiazePOXIDE HCL 10 MG CAPSULE PO PRN
[2024-07-28] MEDS ORDERED: chlordiazePOXIDE HCL 10 MG CAPSULE PO SCH (05:00)
[2024-07-29] MEDS ORDERED: chlordiazePOXIDE HCL 10 MG CAPSULE PO SCH (05:00)
[2024-07-30] MEDS ORDERED: chlordiazePOXIDE HCL 10 MG CAPSULE PO ONE (05:00)
== END 2024-07-27 11:09 | disposition left against medical advice (07) | DRG 770 ==
LOC: YASAS 18:33 → Y3N 22:44
PROVIDERS: ADMIT Allergy & Immunology; ATTEND Surgery
PROC: HZ2ZZZZ Detoxification Services for Substance Abuse Treatment (ICD-10-PCS; principal; 2024-07-24)
DX: F10.230 Alcohol dependence with withdrawal, uncomplicated (principal); F12.20 Cannabis dependence, uncomplicated; F17.210 Nicotine dependence, cigarettes, uncomplicated; F31.9 Bipolar disorder, unspecified; F19.24 Other psychoactive substance dependence with psychoactive substance-induced mood disorder; F43.10 Post-traumatic stress disorder, unspecified; G47.00 Insomnia, unspecified; I10 Essential (primary) hypertension; J45.909 Unspecified asthma, uncomplicated; Z62.810 Personal history of physical and sexual abuse in childhood; Z91.410 Personal history of adult physical and sexual abuse; Z91.199 Patient's noncompliance with other medical treatment and regimen due to unspecified reason
CPT/HCPCS: 36415; 80053; 80164; 80305; 80307; 81025; 85027; 86780; 86803; 87389; 90656; 93005; 93010; G0008